=== PATIENT | male | born 2005 | race Caucasian/White ===

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

== ENCOUNTER 2023-12-08 17:55 | Emergency (ER) | payer BC, SELFPAY ==
[2023-12-08 18:00] VITALS: BP 122/73; PULSE 105; RESP 18; TEMP 36.9; O2SAT 99; BMI 33.3
--- NOTE | 2023-12-08 18:14 | CRLHL7_ITS ---
For Patients: As a result of the Century Cures Act, medical imaging exams and procedure reports are released immediately into your electronic medical record. You may view this report before your referring provider. If you have questions, please contact your health care provider. INDICATION: Cow stepped on leg. Swelling and bruising. COMPARISON: None. FINDINGS/IMPRESSION: Right tibia/fibula, four views. Diffuse soft tissue swelling is noted over the right leg. No soft tissue gas collection or radiopaque foreign body is noted. No acute fracture is seen. No dislocation is evident at the right knee or right ankle. An old avulsion fracture or accessory ossicle is incidentally noted at the tibial tuberosity. Dictated by Toro Lo MD @ 12/08/2023 6:51:53 PM Dictated by: Toro Lo MD @ 12/08/2023 18:53:21 (Electronically Signed)
--- NOTE | 2023-12-08 18:36 | ED.LOWEXIN ---
HPI - Extremity Injury (Lower) General Date Seen: 12/08/23 Chief Complaint: Extremity Pain/Injury, Lower Stated Complaint: crush injury R leg Time Seen by Provider: 12/08/23 17:56 Source: patient Mode of arrival: ambulatory Limitations: no limitations History of Present Illness HPI Narrative: Patient is a 18-year-old male presenting for right lower extremity pain. He states yesterday he was stepped on by a cow. He noticed it kept swelling today and bruising is getting worse he came in to get evaluated. He has been able to ambulate on the leg and states the pain is relatively under control. Denies any numbness or weakness. Denies any other injuries. States most the pain is on the anterior aspect of his lower leg with no pain on the posterior aspect. Denies any previous injuries to this leg. Related Data Home Medications ?Medication ?Instructions ?Recorded ?Confirmed naproxen sodium 220 mg tablet 220 mg PO BID PRN 03/22/22 03/22/22 Previous Rx's ?Medication ?Instructions ?Recorded betamethasone, augmented 0.05 % 1 applic topical BID #15 grams 03/22/22 topical cream Allergies Allergy/AdvReac Type Severity Reaction Status Date / Time No Known Drug Allergies Allergy Verified 03/22/22 14:12 Review of Systems Narrative: Pertinent systems reviewed and were negative unless stated in HPI PFSH PFS Medical History Back pain ?M54.9 - Dorsalgia, unspecified (ICD-10) Abdominal pain ?R10.9 - Unspecified abdominal pain (ICD-10) Social History Smoking Status: Never smoker How often do you have a drink containing alcohol: never AUDIT-C Alcohol total score: 0 Non-prescribed substance use: denies use Little interest or pleasure in doing things: not at all Feeling down, depressed, or hopeless: not at all Exam Narrative: Exam Narrative: Const: Well-nourished, Well-developed, in mild distress Eyes: PERRL, no conjunctival injection, and symmetrical lids HENT: Atraumatic external nose and ears. Moist mucous membranes. Neck: Symmetric, trachea midline, No thyromegaly. CVS: Peripheral pulses 2+ and equal in lower extremities MSK: Swelling and bruising noted to right lower extremity. Swelling noted to the anterior or and lateral compartment tenderness to palpation. There is a firmness to this area. Also noted bruising with swelling and firmness to the medial portion of the superficial posterior compartment. No swelling or pain to the posterior aspect of this compartment. The most distal 10 cm of the lower leg and above the ankle has no swelling, bruising, tenderness, firmness Skin: Warm, Dry. No rashes or lesions. Neuro: Normal Muscle tone, No focal neurological deficits. Psych: Awake, Alert, & Oriented x3. Appropriate mood and affect. Const: Vital Signs, click to edit/add: Vital Signs - 24 hr 12/08/23 18:00 Temperature 98.4 F Pulse Rate [Right Pulse Oximeter] 105 H Respiratory Rate 18 Blood Pressure [Ri ght Upper Arm] 122/73 Pulse Oximetry 99 Oxygen Delivery Me thod Room Air Course Vital Signs Vital signs: Initial Vital Signs Temperature 98.4 F 12/08/23 18:00 Temperature Source Temporal Artery Scan 12/08/23 18:00 Pulse Rate 105 H 12/08/23 18:00 Pulse Rhythm Regular 12/08/23 18:00 Pulse Strength 3+ Normal 12/08/23 18:00 Respiratory Rate 18 12/08/23 18:00 Blood Pressure 122/73 12/08/23 18:00 Blood Pressure Mean 89 12/08/23 18:00 Blood Pressure Position Sitting 12/08/23 18:00 Pulse Oximetry 99 12/08/23 18:00 Oxygen Delivery Method Room Air 12/08/23 18:00 Vital Signs Temperature 98.4 F 12/08/23 18:00 Pulse Rate 105 H 12/08/23 18:00 Respiratory Rate 18 12/08/23 18:00 Blood Pressure 122/73 12/08/23 18:00 Pulse Oximetry 99 12/08/23 18:00 Oxygen Delivery Method Room Air 12/08/23 18:00 Temperature 98.4 F 12/08/23 18:00 Pulse Rate 105 H 12/08/23 18:00 Respiratory Rate 18 12/08/23 18:00 Blood Pressure 122/73 12/08/23 18:00 Pulse Oximetry 99 12/08/23 18:00 Oxygen Delivery Method Room Air 12/08/23 18:00 MDM - Extremity Injury (Lower) MDM Narrative Medical decision making narrative: Patient is a 18-year-old male presenting for right lower extremity pain. My initial concern was for compartment syndrome although he is not having any other symptoms other than firmness in his leg. What would be the full superficial posterior compartment only has swelling noted to the most medial half. This is also were bruising is seen. What would be the anterior and lateral compartments are firm but of note all the swelling and firmness. About 10 cm up from the ankle. An x-ray was ordered and I immediately paged Orthopedics. At this time they do not believe it is compartment syndrome but will get back to me when we get the results of the x-ray. X-ray returned showing no acute fractures. There is soft tissue swelling seen on the exam which was expected sick considering physical exam. I I spoke to orthopedics about this again and at this time considering her overall physical exam findings this seems unlikely to be compartment syndrome. They are comfortable with me discharging the patient home but do want him to follow up next week with them to re-evaluate the leg. I did give the patient very strict return precautions for signs of compartment syndrome informed him how emergent condition is. Imaging Data X-ray right tibia/fibula: Attestation: I have reviewed the pertinent imaging results. My impression: Right tibia/fibula, four views. Diffuse soft tissue swelling is noted over the right leg. No soft tissue gas collection or radiopaque foreign body is noted. No acute fracture is seen. No dislocation is evident at the right knee or right ankle. An old avulsion fracture or accessory ossicle is incidentally noted at the tibial tuberosity. Dictated by Troo Lo MD @ 12/08/2023 6:51:53 PM Discharge Plan Discharge Clinical Impression: Hematoma of right lower leg Patient Disposition: Home, Self-Care Condition: Stable Instructions: Compartment Syndrome (DC), Contusion in Adults (ED) Additional Instructions: If your having any symptoms of compartment syndrome including worsening pain, numbness, weakness, paleness of the leg return to emergency department immediately as this is a true emergency. This will likely require fasciaotomy for compartment syndrome that will need to be done at a trauma center. Schedule appointment next week with [facility]. Their number is [phone]. Prescriptions: No Action naproxen sodium 220 mg tablet 220 mg PO BID PRN betamethasone, augmented 0.05 % cream 1 applic topical BID Qty: 15 3RF Follow Up/Referrals: Gama Gonzalez MD [Primary Care Provider] - Stand Alone Forms: [employer] Info Instructions
== END 2023-12-08 19:30 | disposition home or self-care (01) ==
PROVIDERS: Emergency Provider Student in an Organized Health Care Education/Training Program; PCP Family Medicine
DX: S80.11XA Contusion of right lower leg, initial encounter (principal)
CPT/HCPCS: 73590; 99283

== ENCOUNTER 2023-12-13 15:59 | Outpatient (CLI) | payer BC, SELFPAY ==
--- NOTE | 2023-12-13 16:45 | CRLHL7_ITS ---
For Patients: As a result of the Century Cures Act, medical imaging exams and procedure reports are released immediately into your electronic medical record. You may view this report before your referring provider. If you have questions, please contact your health care provider. EXAM: CT OF THE RIGHT KNEE, WITHOUT CONTRAST CLINICAL INDICATION: Contusion and hematoma. COMPARISON STUDIES: 12/08/2023 tibia and fibula radiographs. TECHNICAL: Non-contrast CT of the knee with axial images. Sagittal oblique and coronal oblique reformatted images were created. FINDINGS: OSSEOUS STRUCTURES: Femur: No fracture. Tibia: No fracture. Chronic ossicle at the tibial tubercle. Fibula: No fracture. Patella: No fracture. JOINT SPACE: Knee Joint: No joint effusion, synovitis, loose body or lipohemarthrosis. Medial Compartment: No joint space narrowing, hypertrophic change or subchondral cystic change. Lateral Compartment: No joint space narrowing, hypertrophic change or subchondral cystic change. Patellofemoral Compartment: No joint space narrowing, hypertrophic change or subchondral cystic change. EXTENSOR MECHANISM: Distal Quadriceps Tendon: No tear or tendinopathy. Patellar Tendon: No tear or tendinopathy. Patellar Retinaculum: Normal. Patellar Alignment: No tilt or subluxation. SOFT TISSUES: Elliptical subcutaneous hematoma in the anteromedial aspect of the proximal tibial region measures 13 cm CC x 8 cm RL x 2.5 cm AP and extends inferiorly out of the field of view. No additional hematoma is evident. Mild diffuse subcutaneous edema. MUSCLES AND TENDONS: No intramuscular hematoma. No muscle atrophy. NEUROVASCULAR STRUCTURES: No abnormality of the visualized neurovascular structures. IMPRESSION: 1. Subcutaneous hematoma in the anteromedial aspect of the proximal tibial region. 2. Diffuse subcutaneous edema. 3. No fracture. 4. Chronic ossicle at the tibial tubercle. 5. No knee joint effusion. Please note that all CT scans at this facility use dose modulation, iterative reconstruction, and/or weight-based dosing when appropriate to reduce radiation dose to as low as reasonably achievable. Dictated by Hayder Swann MD @ 12/14/2023 12:36:17 PM (Electronically Signed)
== END 2023-12-13 16:00 | disposition home or self-care (01) ==
LOC: CT 16:00
PROVIDERS: PCP Family Medicine; Visit Provider Orthopaedic Surgery
DX: S80.11XA Contusion of right lower leg, initial encounter (principal); R60.9 Edema, unspecified
CPT/HCPCS: 73700